=== PATIENT | female | born 1955 | race Caucasian/White ===

== ENCOUNTER → 2021-03-14 | Outpatient (CLI) | payer MEDICARE ==
[~2021-03-14] MED LIST: CALCIUM 1,0001 EACH PO; CITALOPRAM HBR40 MG PO; CLONAZEPAM1 MG PO; CRANBERRY400 M1 PO; FOSAMAX70 MG PO; GABAPENTIN600 MG PO; GLUCOSAMINE1000 MG PO; HYDROXYZINE HCL25 MG PO; KLOR-CON 1010 MEQ PO; LAMOTRIGINE100 MG PO; LASIX40 MG PO; LEVOTHYROXINE100 MCG PO; POTASSIUM GLUCO99 M1 PO; RISPERIDONE2 MG PO; ROBAXIN-750750 MG PO; TRAZODONE HCL150 MG PO; ULTRAM 50MG50 MG PO
== END ==
LOC: MRI 13:32
PROVIDERS: ATTEND Internal Medicine
DX: M25.562 Pain in left knee (principal); S72.432A Displaced fracture of medial condyle of left femur, initial encounter for closed fracture; S83.282A Other tear of lateral meniscus, current injury, left knee, initial encounter; M17.12 Unilateral primary osteoarthritis, left knee; M25.462 Effusion, left knee

== ENCOUNTER 2021-07-16 17:45 | Emergency (ER) | payer BC, MEDICARE ==
[~2021-07-16] VITALS: Ht 154.9 cm; Wt 126.6 kg
[2021-07-16] MEDS ORDERED: SODIUM CHLORIDE 0.9% 1000ML 1,000 ML ONE (18:45)
== END 2021-07-16 22:25 | disposition home or self-care (01) ==
LOC: ER 22:00
DX: S82.141A Displaced bicondylar fracture of right tibia, initial encounter for closed fracture (principal); W19.XXXA Unspecified fall, initial encounter; Z96.652 Presence of left artificial knee joint; Z87.891 Personal history of nicotine dependence
CPT/HCPCS: 73560; 99283; J7030